=== PATIENT | female | born 1965 | race Two or more races ===

== ENCOUNTER 2016-12-20 10:54 | Day surgery (SDC) | payer SELFPAY ==
[2016-12-20 11:39] LABS: HCT-HEMATOCRIT 40.7 % (34.0-49.0); HGB-HEMOGLOBIN 14.1 gm/dl (12.0-15.5); MCV (MEAN CELL VOLUME) 88.9 fl (82.0-96.0)
[2016-12-20] MEDS ORDERED: MULTIVITAMINS1 EAC6 PO (11:41)
== END 2016-12-20 15:25 ==
LOC: WSU 10:54 → SHSA 10:55 → ORW 13:18
PROVIDERS: Obstetrics & Gynecology
PROC: 01HY3MZ Insertion of Neurostimulator Lead into Peripheral Nerve, Percutaneous Approach (ICD-10-PCS; principal; 2016-12-20)
DX: N39.3 Stress incontinence (female) (male) (principal); E66.01 Morbid (severe) obesity due to excess calories; R35.0 Frequency of micturition; Z68.34 Body mass index [BMI] 34.0-34.9, adult; Z79.899 Other long term (current) drug therapy